=== PATIENT | female | born 1990 ===

== ENCOUNTER 2019-01-25 11:23 | Inpatient (IN) | payer OTHER ==
[~2019-01-25] VITALS: Ht 160 cm; Wt 3.2 kg
[2019-01-25] MEDS ORDERED: PRENATAL + DHA1 EAC1 PO (11:53)
[2019-01-25] MEDS ORDERED: IRON325 MG PO (11:53)
== END 2019-01-28 10:35 | disposition home or self-care (01) | DRG 788 ==
LOC: EDBD 11:23 → OB/GYN 11:23 → LDR 11:23 → OB/GYN 17:54
PROVIDERS: Obstetrics & Gynecology; ADMIT Obstetrics & Gynecology
PROC: 3E033VJ Introduction of Other Hormone into Peripheral Vein, Percutaneous Approach (ICD-10-PCS; 2019-01-25)
PROC: 10907ZC Drainage of Amniotic Fluid, Therapeutic from Products of Conception, Via Natural or Artificial Opening (ICD-10-PCS; 2019-01-25)
PROC: 4A1HXCZ Monitoring of Products of Conception, Cardiac Rate, External Approach (ICD-10-PCS; 2019-01-25)
PROC: 10D00Z1 Extraction of Products of Conception, Low, Open Approach (ICD-10-PCS; principal; 2019-01-25 16:00)
DX: O82 Encounter for cesarean delivery without indication (principal); O64.8XX0 Obstructed labor due to other malposition and malpresentation, not applicable or unspecified; Z3A.40 40 weeks gestation of pregnancy; Z37.0 Single live birth